=== PATIENT | female | born 1960 | race Caucasian/White ===

== ENCOUNTER 2020-09-12 08:39 | Emergency (ER) | payer BC, SELFPAY ==
[2020-09-12] VITALS (7 sets, daily range): BP systolic 104–139; BP diastolic 72–83; PULSE 53–92; RESP 18–20; TEMP 36.4–37.1; O2SAT 92–99; BMI 24.5
--- NOTE | 2020-09-12 08:45 | ECG_ITS ---
[facility] Test Date: 2020-09-12 Pat Name: Charito Villagomez Department: Room: Gender: Female Pediatric Urologist: : 1960 Requested By: Mc Sinha Order Number: [id number] Mckenzie MD: Karen Carreno M.D. Measurements Intervals [place] Rate: 60 P: 53 MN: 166 QRS: 12 QRSD: 80 T: 54 QT: 433 QTc: 434 Interpretive Statements SINUS RHYTHM LOW QRS VOLTAGE IN PRECORDIAL LEADS [QRS DEFLECTION < 1.0 mV IN CHEST LEADS] Compared to ECG 12/17/2014 01:21:19 Sinus tachycardia no longer present Electronically Signed On 09-12-2020 19:14:21 MICA BUILDER by Karen Carreno M.D. [id number] f
--- NOTE | 2020-09-12 09:17 | W.ED.CHESTPA ---
HPI - Chest Pain General: Chief Complaint: Chest Pain Stated Complaint: CHEST PAIN Time Seen by Provider: 09/12/20 08:45 History of Present Illness: HPI narrative: 59 yo female with chest/epigastric pain. Pt reports she has these episodes 2-4 times per month that usually resolve spontaneously. Pain began while pt was at rest in bed, resolved w IV pain meds she did have an episode of diaphoresis with this but no radiation of pain into the neck back or arms. She states she often can get these episodes to go away when she lies on her stomach. She has no known history of coronary artery disease she is not recently had any productive cough or fever. MD complaint: chest pain Onset (ago): hour(s) Timing of current episode: episodic Prior episodes: Yes Onset: during rest Pain location: substernal and epigastric Pain radiation: none Severity: moderate Quality: tightness and heaviness Relieving factors: other (Lying on his stomach) Exacerbating factors: nothing Associated symptoms: Reports abdominal pain and diaphoresis; Deny dyspnea, fever(s), leg edema, nausea, palpitations, sense of impending doom, syncope or vomiting Treatment prior to arrival: other (IV pain meds) Review of Systems Const: Reports: diaphoresis; Denies: fever(s) ENMT: Denies: throat pain, ear or mastoid pain, nasal discharge or nasal congestion Card: Denies: palpitations or syncope Resp: Denies: dyspnea GI: Reports: abdominal pain; Denies: nausea or vomiting : Denies: flank pain, difficulty voiding, dysuria, urinary frequency or urinary urgency Skin/Breast: Denies: rash or pruritus PFSH ED PFSH: Medical History (Updated 09/12/20 @ 13:56 by Mc Gutiérrez DO) Depression Endometriosis Hypothyroidism Surgical History (Updated 09/12/20 @ 10:11 by Mc Gutiérrez DO) H/O tubal ligation History of endometrial ablation Hx of appendectomy Social History (Updated 09/12/20 @ 10:11 by Mc Gutiérrez DO) Smoking and tobacco status: current some day smoker Alcohol intake: current Physical Exam Const: COMMON NORMALS: no acute distress GENERAL APPEARANCE: cooperative and comfortable ORIENTATION/CONSCIOUSNESS: Yes awake, Yes oriented to person, Yes oriented to place and Yes oriented to time HENMT: COMMON NORMALS: normocephalic, atraumatic and hearing grossly normal bilaterally HEAD & SCALP: normocephalic and atraumatic Neck/C-Spine: COMMON NORMALS: no JVD Resp: COMMON NORMALS: normal respiratory effort, No retractions, No use of accessory muscles and clear to auscultation bilaterally AUSCULTATION: clear to auscultation bilaterally Cardio: COMMON NORMALS: no JVD, regular rate, regular rhythm and No murmurs present (Cardio) RATE: regular rate RHYTHM: regular rhythm GI: COMMON NORMALS: Soft to palpation and No hepatosplenomegaly present AUSCULTATION: Yes normoactive bowel sounds PALPATION: Yes Soft to palpation, No Tenderness to palpation present (GI), No Guarding due to palpation present (GI) and Yes No hepatosplenomegaly present Extremity: COMMON NORMALS: normal to inspection, capillary refill normal, no clubbing, cyanosis or edema, no calf tenderness and no pedal edema Neuro: SENSORIUM/ORIENTATION: Yes oriented to person, Yes oriented to place and Yes oriented to time Skin: COMMON NORMALS: no rashes or lesions noted GENERAL SKIN EXAM: no rashes or lesions noted Course Vital Signs: Vital signs: Vital Signs Temperature 97.6 F 09/12/20 14:15 Pulse Rate 67 09/12/20 14:15 Respiratory Rate 18 09/12/20 14:15 Blood Pressure 116/78 09/12/20 14:15 Pulse Oximetry 92 09/12/20 14:15 MDM - Chest Pain MDM Narrative: Medical decision making narrative: Troponin negative x2 pain is resolved at this point. We are going to discharge her home however take enteric-coated aspirin daily also started on omeprazole set up for an outpatient stress test. Any worsening or change symptoms return to the emergency room. Lab Data: Labs: Lab Results 09/12/20 09/12/20 09/12/20 Range/Units 09:00 09:00 09:00 WBC 7.8 (4.0-10.0) 10^3/ uL RBC 5.07 (4.1-5.3) 10^6/u L Hgb 15.0 (11.5-15.3) g/dL Hct 45.6 (37.0-47.0) % MCV 89.9 (81-99) fL MCH 29.6 (28.0-34.0) pg MCHC 32.9 (30.0-36.0) g/dL RDW 14.1 (12.1-15.1) % Plt Count 284 (130-400) 10^3/c mm MPV 12.3 H (7.4-10.4) fL Neut % (Auto) 74.1 % Lymph % (Auto) 16.5 % Emery % (Auto) 5.2 % Eos % (Auto) 3.2 % Baso % (Auto) 0.6 % Neut # (Auto) 5.79 (1.8-7.7) 10^3/u L Lymph # (Auto) 1.3 (0.8-4.8) 10^3/u L Emery # (Auto) 0.4 (0.2-0.9) 10^3/u L Eos # (Auto) 0.3 (0.0-0.8) 10^3/u L Baso # (Auto) 0.1 (0.0-0.1) 10^3/u L Nucleated RBC % (a uto) 0 % Nucleated RBCs # 0.0 /100WBC Sodium 140 (136-145) mmol/L Potassium 4.1 (3.5-5.1) mmol/L Chloride 106 (98-107) mmol/L Carbon Dioxide 24 (22-29) mmol/L Anion Gap 14.1 (5-19) BUN 11 (6-20) mg/dL Creatinine 0.5 (0.5-0.9) mg/dL GFR Calculation 126.7 (90-130) mL/min Glucose 158 H (65-115) mg/dL Calculated Osmolal ity 293 (285-295) mOsm/k g Calcium 9.1 (8.5-10.5) mg/dL Total Bilirubin 0.4 (0.15-1.2) mg/dL AST 35 H (0-32) U/L ALT 22 (0-33) U/L Alkaline Phosphata se 81 (35-105) IU/L Troponin T Baselin e 6 (0-10) ng/L Troponin T 120 [place] (0-10) ng/L Delta Troponin T (0-10) ABS# Total Protein 6.7 (6.6-8.7) g/dL Albumin 4.0 (3.5-5.2) g/dL Globulin 2.7 (1.3-4.6) g/dL 09/12/20 Range/Units 12:24 WBC (4.0-10.0) 10^3/ uL RBC (4.1-5.3) 10^6/u L Hgb (11.5-15.3) g/dL Hct (37.0-47.0) % MCV (81-99) fL MCH (28.0-34.0) pg MCHC (30.0-36.0) g/dL RDW (12.1-15.1) % Plt Count (130-400) 10^3/c mm MPV (7.4-10.4) fL Neut % (Auto) % Lymph % (Auto) % Emery % (Auto) % Eos % (Auto) % Baso % (Auto) % Neut # (Auto) (1.8-7.7) 10^3/u L Lymph # (Auto) (0.8-4.8) 10^3/u L Emery # (Auto) (0.2-0.9) 10^3/u L Eos # (Auto) (0.0-0.8) 10^3/u L Baso # (Auto) (0.0-0.1) 10^3/u L Nucleated RBC % (a uto) % Nucleated RBCs # /100WBC Sodium (136-145) mmol/L Potassium (3.5-5.1) mmol/L Chloride (98-107) mmol/L Carbon Dioxide (22-29) mmol/L Anion Gap (5-19) BUN (6-20) mg/dL Creatinine (0.5-0.9) mg/dL GFR Calculation (90-130) mL/min Glucose (65-115) mg/dL Calculated Osmolal ity (285-295) mOsm/k g Calcium (8.5-10.5) mg/dL Total Bilirubin (0.15-1.2) mg/dL AST (0-32) U/L ALT (0-33) U/L Alkaline Phosphata se (35-105) IU/L Troponin T Baselin e (0-10) ng/L Troponin T 120 [place] 6.00 (0-10) ng/L Delta Troponin T 0 (0-10) ABS# Total Protein (6.6-8.7) g/dL Albumin (3.5-5.2) g/dL Globulin (1.3-4.6) g/dL Discharge Plan Discharge Clinical Impression: Atypical chest pain Condition: Stable Prescriptions: New aspirin 81 mg tablet,delayed release (DR/EC) 81 mg PO DAILY Qty: 30 RF: 0 omeprazole 20 mg capsule,delayed release(DR/EC) 20 mg PO DAILY Qty: 30 RF: 1 No Action levothyroxine 88 mcg tablet 88 mcg PO DAILY@10 RF: 0 duloxetine 60 mg capsule,delayed release(DR/EC) 60 mg PO DAILY@10 RF: 0 Probiotic 3 billion cell Capsule 3,000 mmu cells PO DAILY@10 RF: 0 Discharge Orders: Discharge ED (Routine); Ordered 09/12/20 Ordered By: Mc Gutiérrez Referrals: Olivia Mark DO [Family Provider] - Activity Restrictions/Additional Instructions: Case management will call to arrange for outpatient stress test Coding Level of Care Code ED Slip Dumper for Chg Fwd Exam Comprehensive
[2020-09-12] MEDS: morphine 4 mg/mL SDV 1 mL 2 MG IVP (09:54)
[2020-09-12 10:02] LABS: Troponin(5th) Baseline 6 ng/L (0-10)
--- NOTE | 2020-09-12 10:28 | XR_ITS ---
WS: [id number] Portable AP upright chest, 09/12/2020 Clinical Data: dyspnea/cough Comparison: PA chest, 12/17/2014. Findings: No nodules, masses or effusions are seen. The heart is normal. The pulmonary vascularity is not increased. No pneumonia or pneumothorax is seen. The aortic arch and descending aorta show tortu osity XR/XR chest 1V portable [id number] Impression: Atherosclerosis.
--- NOTE | 2020-09-12 10:45 | ECG_ITS ---
[facility] Test Date: 2020-09-12 Pat Name: Charito Villagomez Department: Room: Gender: Female Teacher Physically Impaired: : 1960 Requested By: Mc Sinha Order Number: [id number] Mckenzie MD: Karen Carreno M.D. Measurements Intervals [place] Rate: 58 P: 27 [place]: 164 QRS: 34 QRSD: 80 T: 56 QT: 431 QTc: 426 Interpretive Statements SINUS BRADYCARDIA LOW QRS VOLTAGE IN PRECORDIAL LEADS [QRS DEFLECTION < 1.0 mV IN CHEST LEADS] Compared to ECG 09/12/2020 08:51:37 Sinus rhythm no longer present Electronically Signed On 09-12-2020 19:20:47 CANDY STARCH MOLD PRINTER by Karen Carreno M.D. [id number]
[2020-09-12 11:03] LABS: Alanine Aminotransferase 22 U/L (0-33); Alkaline Phosphatase 81 IU/L (35-105); Anion Gap 14.1 (5-19); Aspartate Amino Transferase 35 U/L (0-32); Blood Urea Nitrogen 11 mg/dL (6-20); Calcium 9.1 mg/dL (8.5-10.5); Carbon Dioxide 24 mmol/L (22-29); Chloride 106 mmol/L (98-107); Globulin 2.7 g/dL (1.3-4.6); Glomerular Filtration Rate 126.7 mL/min (90-130); Glucose 158 mg/dL (65-115); Osmolality Calculated 293 mOsm/kg (285-295); Potassium 4.1 mmol/L (3.5-5.1); Sodium 140 mmol/L (136-145); Total Bilirubin 0.4 mg/dL (0.15-1.2); Total Protein 6.7 g/dL (6.6-8.7)
[2020-09-12 11:13] LABS: Basophils # 0.1 10^3/uL (0.0-0.1); Basophils % 0.6 %; Eosinophils # 0.3 10^3/uL (0.0-0.8); Eosinophils % 3.2 %; Hematocrit 45.6 % (37.0-47.0); Lymphocytes # 1.3 10^3/uL (0.8-4.8); Lymphocytes % 16.5 %; Mean Corpuscular HGB Conc 32.9 g/dL (30.0-36.0); Mean Corpuscular Hemoglobin 29.6 pg (28.0-34.0); Mean Corpuscular Volume 89.9 fL (81-99); Mean Platelet Volume 12.3 fL (7.4-10.4); Monocytes # 0.4 10^3/uL (0.2-0.9); Monocytes % 5.2 %; Neutrophils # 5.79 10^3/uL (1.8-7.7); Neutrophils % 74.1 %; Nucleated Red Blood Cells % 0 %; Platelet Count 284 10^3/cmm (130-400); Red Blood Count 5.07 10^6/uL (4.1-5.3); Red Cell Distribution Width 14.1 % (12.1-15.1); White Blood Count 7.8 10^3/uL (4.0-10.0)
--- NOTE | 2020-09-12 12:50 | CT_ITS ---
WS: [id number] CTA OF THE CHEST WITH PULMONARY EMBOLISM PROTOCOL TECHNIQUE: High-resolution contrast enhanced CTA of the chest with coronal and sagittal reformatted i mages with pulmonary embolism protocol. MIP images are also reviewed. CLINICAL INFORMATION: chest pain COMPARISON: None. DLP: 482.[address] scans at [facility] use at least one of these dose optimization techniques: automat ed exposure control; mA and/or kV adjustment per patient size (includes targeted exams where dose is matched to clinical indication); or iterative reconstruction. FINDINGS: Proximal main pulmonary arteries are normal. Normal segmental and subsegmental pulmonary arteries. No evidence Mild chronic emphysematous changes. Subsegmental atelectasis in the lung bases. Clustered nodular [place] in the right upper lobe measuring up to 7 mm. Subsegmental atelectasis in the lung bases. Nonc alcified nodule right lower lobe measuring 5 mm. Additional subpleural nodule right lower lobe measur ing 6 mm. No mediastinal or hilar lymphadenopathy. No axillary lymphadenopathy. Adrenal glands are normal. Small esophageal hiatal hernia. CT/CT angio chest PE protcl [id number] IMPRESSION: 1. No evidence of pulmonary embolus. 2. Mild chronic emphysematous changes. No acute pulmonary infiltrates. Subsegm ental atelectasis in the lung bases. 3. Cluster of 3-4 noncalcified nodules in the right upper lobe measuring up to 7 mm. Additional noncalcified nodules in the right lower lobe measuring 5 to 6 mm. Recommend 3 month follow-up. 4. No mediastinal or hilar lymphadenopathy. Notified Mc Gutiérrez DO at 09/12/2020 1:29 PM.
[2020-09-12] MEDS: iohexol 350 mg/mL 100 mL Btl IV (13:02)
[2020-09-12 13:04] LABS: Troponin 5 2HR Delta 0 ABS# (0-10)
[2020-09-12] MEDS: lidocaine 2% viscous 15 ML, aluminum-mag hydrox-simethicon 30 ML, sucralfate oral liq 1 GM PO (14:10)
== END 2020-09-12 14:17 ==
PROVIDERS: Emergency Provider Family Medicine; Family Provider Family Medicine
DX: R07.89 Other chest pain (principal); F17.210 Nicotine dependence, cigarettes, uncomplicated
CPT/HCPCS: 12345; 71045; 71275; 80053; 84484; 85025; 93005; 96374; 96375; 99283; J2270; Q9967

== ENCOUNTER 2020-10-06 09:05 | Outpatient (CLI) | payer BC, SELFPAY ==
--- NOTE | 2020-10-06 09:20 | US_ITS ---
WS: [id number] ULTRASOUND ABDOMEN CLINICAL INFORMATION: ABDOMINAL BLOATING/RUQ ABDOMINAL PAIN COMPARISON: None. FINDINGS: Liver Size: Normal. Craniocaudal length: 12.5 cm. Echogenicity: Normal. Surface nodularity: None. Mass (size and location): None. Bile ducts Intrahepatic ducts: Normal. Common bile duct diameter: 0.5 cm. Gallbladder Cholelithiasis Gallstones: Present Gallbladder sludge: None. Gallbladder wall thickening: None. Pericholecystic fluid: None. Sonographic Lorenzo sign: Absent. Pancreas Normal as visualized. Spleen Splenomegaly: None. Craniocaudal length: 7.8 cm. Right kidney: Normal. Hydronephrosis: None. Size: 9.9 cm x 4.9 cm x 5.0 cm Left kidney: Normal. Hydronephrosis: None. Size: 10.0 cm x 5.0 cm x 5.1 cm. Abdominal aorta and IVC Visualized portions are normal. Ascites: None. US/US abdomen complete* [id number] IMPRESSION: 1. Normal liver. 2. Cholelithiasis. No gallbladder wall thickening. Normal common bile duct. 3. No hydronephrosis in either kidney.
== END 2020-10-06 09:06 | disposition home or self-care (01) ==
LOC: US 09:08
PROVIDERS: PCP Family Medicine; Visit Provider Registered Nurse
DX: R10.11 Right upper quadrant pain (principal); R14.0 Abdominal distension (gaseous); K80.20 Calculus of gallbladder without cholecystitis without obstruction
CPT/HCPCS: 76700

== ENCOUNTER → 2020-11-14 12:04 | Outpatient (BNVA) | payer BC, SELFPAY | PROVIDERS: PCP Family Medicine; Visit Provider Surgery | DX: Z20.822 Contact with and (suspected) exposure to COVID-19 (principal) | CPT/HCPCS: 87635 ==

== ENCOUNTER 2020-11-20 07:00 | Day surgery (SDC) | payer OTHER, SELFPAY ==
[2020-11-19 12:59] VITALS: BMI 24.5
[2020-11-19 13:18] VITALS: BMI 24.5
[2020-11-20] VITALS (11 sets, daily range): BP systolic 117–157; BP diastolic 81–102; PULSE 59–70; RESP 12–22; TEMP 36.3–36.8; O2SAT 90–99
[2020-11-20] MEDS: sodium chloride 0.9% 1,000 ML 30 ML IV (07:35)
--- NOTE | 2020-11-20 07:46 | W.PM.OPSUD ---
Surgery/Procedure H&P Update DATE OF PROCEDURE: November 20, 2020 DATE H&P PERFORMED: 10/28/20 H&P UPDATE INFORMATION: No changes to prior documentation PLANNED PROCEDURE: Operation Date: 11/20/20 08:45 Proposed Procedures p Laparoscopic Cholecystectomy 40121 K80.10(Not Applicable) - Harvey Alston MD
[2020-11-20 08:36] LABS: Alanine Aminotransferase 13 U/L (0-33); Albumin Level 4.3 g/dL (3.5-5.2); Alkaline Phosphatase 161 IU/L (35-105); Globulin 3.3 g/dL (1.3-4.6); Total Bilirubin 0.3 mg/dL (0.15-1.2); Total Protein 7.6 g/dL (6.6-8.7)
--- NOTE | 2020-11-20 08:36 | ANES.PREANE2 ---
Pre-Anesthetic Assessment Pre-Anesthetic Assessment: Height/Weight: Height 1.55 m Weight 58.967 kg Temp Pulse Resp BP Pulse Ox 97.3 F L 67 18 117/82 96 11/20/20 07:24 11/20/20 07:24 11/20/20 07:24 11/20/20 07:24 11/20/20 07:24 Proposed Procedure: Operation Date: 11/20/20 08:45 Proposed Procedures p Laparoscopic Cholecystectomy 60952 K80.10(Not Applicable) - Harvey Alston MD Was Beta Chloe taken within 24 hours: N/A Last intake: Intake Last Liquid Date 11/19/20 Last Liquid Time 22:00 Last Solid Date 11/19/20 Last Solid Time 17:30 Social: Social History: Tobacco and No alcohol Exam: Pre-Anes Outpt Exam: alert, oriented x 3 and regular rate & rhythm Additional Exam Findings (including area of procedure): rhonchi Airway: Submandibular: WNL Cervical ROM: WNL MP: 2 Dentition: Full Pulmonary: Pulmonary: COPD GI: GI: GERD Metabolic: Metabolic: Thyroid Anesthetic Plan: ASA status: 3 Anesthesia: General Risk of > 500 ml blood loss (7ml/kg in children): No Meds/Allergies Current Medications: Current Medications Generic Name Dose Route Start Last Admin Trade Name Freq PRN Reason Stop Dose Admin Sodium Chloride 1,000 mls @ 30 ml s/hr 11/20/20 07:15 11/20/20 07:35 Sodium Chloride 0.9% IV 11/21/20 07:14 30 mls/hr .Q24H MICHELE Administration PFSH Anesthesia PFSH: Medical History (Updated 09/20/20 @ 00:00 by ) Depression Endometriosis Hypothyroidism Surgical History (Updated 09/12/20 @ 10:11 by Mc Gutiérrez DO) H/O tubal ligation History of endometrial ablation Hx of appendectomy Social History (Updated 09/12/20 @ 10:11 by Mc Gutiérrez DO) Smoking and tobacco status: current some day smoker Alcohol intake: current Data Anesthesia Cardiac Studies: No Data to Display
[2020-11-20 08:42] LABS: Aspartate Amino Transferase 18 U/L (0-32)
--- NOTE | 2020-11-20 09:44 | P.OP_ITS ---
Operative Report Date of procedure: November 20, 2020 Pre-op Diagnosis: Symptomatic cholelithiasis. Post-op diagnosis: same Procedure Done: Laparoscopic cholecystectomy. Specimens removed/disposition: Gallbladder. Surgeon: Harvey Alston Anesthesia: General Estimated blood loss (mL): 10 Complications: None. Condition: stable Disposition: PACU Procedure: The patient was brought to the Operating Room and was placed in a supine position on the Operating Room table. General endotracheal anesthesia was induced. The abdomen was prepped and draped in a sterile fashion. A small vertical incision was carried out in the inferior aspect of the umbilicus. Blunt dissection was carried out down to the fascia, which was grasped with a Aftab clamp. A stay suture of 0 Vicryl was placed on either side of the midline and the midline fascia was incised. The underlying peritoneum was opened bluntly and the Bud port was placed directly into the peritoneal cavity and was held in place with the inflatable balloon. The peritoneal cavity was insufflated with carbon dioxide. The laparoscope was used to inspect the abdominal cavity. The patient had some light adhesions to the lateral sidewall in the right mid abdomen, presumably from her previous appendectomy. No other gross abnormalities were initially noted other than the fact that the gallbladder appeared to be somewhat d istended. A 5 millimeter port was placed in the epigastrium under direct vision. Two 5-millimeter ports were placed on the right side of the abdomen under direct vision. The gallbladder was palpated with a grasper and actually is found to be quite distended. For that reason approximately 50 mL of clear fluid were suctioned out of the gallbladder using a laparoscopic needle to partially decompress it. The gallbladder was then grasped and was elevated. The patient had some adhesions along the fundus of the gallbladder down to and involving the infundibulum. The duodenum was somewhat stuck to the fundus near the infundibulum and was carefully taken off using blunt dissection with a minimum of cautery to maintain hemostasis. Blunt dissection and hydrodissection were carried out in the infundibular region of the gallbladder and the cystic duct and cystic artery were identified. The cystic duct appeared to be somewhat sizable. All of the patient's liver function studies preoperatively were normal with the exception of a mildly elevated alkaline phosphatase. The gallbladder was partially removed from the liver bed using cautery and the spatula to confirm the anatomy before the structures were clipped and divided. The gallbladder was palpated with a grasper from the common bile duct side up towards the lumen to pushing the stone into the gallbladder lumen prior to clipping and division. The gallbladder was then removed from the liver bed using cautery and the spatula. After the gallbladder had been removed from the liver bed, the laparoscope was moved to the epigastric port and the gallbladder was removed from the peritoneal cavity through the umbilical port site after being placed in a laparoscopic bag. The stay sutures of Vicryl were tied to each other at the umbilicus, closing the defect so that it was airtight. The perihepatic spaces were irrigated with saline and the liver bed was reinspected. No ongoing problems were seen. The remaining ports were removed from the abdominal wall and the pneumoperitoneum was evacuated. All skin incisions were closed using inverted interrupted sutures of 4-0 Vicryl. Benzoin and Steri-Strips were placed over the incisions and Band-Aids followed. The patient was taken to the Recovery Area in stable condition postoperatively.
[2020-11-20] MEDS: ipratropium 0.5 mg/2.5 mL Neb INHALATION (10:03)
--- NOTE | 2020-11-20 12:05 | ANE.PACU2 ---
Inpatient post-anesthesia follow up: Airway intact: Yes Vital signs: Temperature 98.3 F Pulse Rate 60 Respiratory Rate 18 Blood Pressure 157/95 Pulse Oximetry 97 Oxygen Delivery Me thod Room Air Oxygen Flow Rate 2 Fraction of Inspir ed Oxygen Hydration adequate: Yes Nausea and vomiting: No Pain level: 2 Mental status: Baseline
== END 2020-11-20 11:45 | disposition home or self-care (01) ==
PROVIDERS: PCP Family Medicine; Visit Provider Surgery
PROC: 0FT44ZZ Resection of Gallbladder, Percutaneous Endoscopic Approach (ICD-10-PCS; CPT 47562; principal; 2020-11-20 08:45)
DX: K80.10 Calculus of gallbladder with chronic cholecystitis without obstruction (principal); J44.9 Chronic obstructive pulmonary disease, unspecified; E03.9 Hypothyroidism, unspecified; F17.210 Nicotine dependence, cigarettes, uncomplicated
CPT/HCPCS: 47562; 12345; 80076; 88304; 96365; J0690; J3010; J3490; J7030; J7611; J7644

== ENCOUNTER 2022-02-16 12:06 | Emergency (ER) | payer OTHER, SELFPAY ==
[2022-02-16 12:25] VITALS: BP 125/85; PULSE 69; RESP 15; TEMP 36; O2SAT 97
--- NOTE | 2022-02-16 12:47 | ED_ITS ---
HPI - Abdominal Pain General: Chief Complaint: Abdominal Pain Stated Complaint: n/v Time Seen by Provider: 02/16/22 12:42 History of Present Illness: 61-year-old female in with upper abdominal pain for the past 45 to 60 minutes. Patient reports that her stomach felt a little queasy early this morning but really she was doing okay they went out did some shopping and then she began to have some concerns of worsening abdominal pain and had some nausea vomiting and diarrhea. She does not believe she is run any fever. She has had symptoms like this previously she says that it reminds her of when she had her gallbladder attacks. The patient has had a interval cholecystectomy. The patient denies any blood in the stools or vomitus. She has not been drinking she never had a history of pancreatitis. She does feel like she has had history of ulcer or gastritis previously but is unsure exactly. The patient denies any fever. She just says that overall she just generally does not feel well. The patient has not started on any new or different medications nor she traveled out of the area recently. No other symptoms reported. [facility] ED PFSH: Medical History Depression Endometriosis Hypothyroidism Surgical History H/O tubal ligation History of endometrial ablation Hx of appendectomy Social History Smoking and tobacco status: current some day smoker Alcohol intake: current Physical Exam Const: COMMON NORMALS: no acute distress, patient oriented x3, healthy appearing and alert HENMT: COMMON NORMALS: normocephalic HEAD & SCALP: normocephalic Eye: COMMON NORMALS: Equal, round and reactive pupils present, EOMs intact bilaterally and conjunctivae normal CONJUNCTIVA: Yes conjunctivae normal PUPIL: Yes Equal, round and reactive pupils present Neck/C-Spine: COMMON NORMALS: full ROM, no lymphadenopathy and no meningeal signs Chest: COMMONS NORMALS: normal inspection of the chest and normal palpation of entire chest wall Resp: COMMON NORMALS: normal respiratory effort and clear to auscultation bilaterally AUSCULTATION: clear to auscultation bilaterally GI: COMMON NORMALS: Normal to inspection, nondistended, normoactive bowel sounds present, Soft to palpation and non-tender PALPATION: Yes Soft to palpation : COMMON NORMALS: Yes no CVA tenderness BLADDER/KIDNEY EXAM: Yes no CVA tenderness Back/Pelvis: COMMON NORMALS: no CVA tenderness Extremity: COMMON NORMALS: normal to inspection, full ROM and capillary refill normal Neuro: COMMON NORMALS: patient oriented x3 SENSORIUM/ORIENTATION: Yes alert MENINGEAL SIGNS: Yes no meningeal signs Skin: COMMON NORMALS: no rashes or lesions noted, no wounds and turgor normal GENERAL SKIN EXAM: no rashes or lesions noted and turgor normal Course Vital Signs: Vital signs: Vital Signs Temperature 96.8 F L 02/16/22 12:25 Pulse Rate 61 02/16/22 13:44 Respiratory Rate 15 02/16/22 12:25 Blood Pressure 159/82 02/16/22 13:44 Pulse Oximetry 97 02/16/22 13:44 MDM - Abdominal Pain Medical Decision Making 61-year-old female in with concerns of nausea vomiting and loose stools of rather acute onset. She is presenting very early I suspect that this is likely a viral syndrome there is another close contact that had some similar symptoms including some diarrhea. The patient does not look particularly ill her vital signs are reasonable she is not febrile. I will give her some IV fluids, antiemetics if she can handle a GI cocktail we may try that as well. We will check some routine labs and then based on objective findings and reexamination will determine a disposition. Patient felt significantly better after intervention in the emergency department her labs were not particularly disordered or diagnostic. She had mildly elevated lipase not meeting criteria for pancreatitis. She did not have any ongoing active vomiting in the emergency department her vital signs remained stable. I think the patient is unlikely to have a serious intra-abdominal process I think observational treatment and symptomatic care is reasonable. Lab Data : 02/16/22 13:12 02/16/22 13:12 Labs/Radiology: Laboratory Results WBC 13.5 10^3/uL (4.0-10.0) H 02/16/22 13:12 RBC 5.56 10^6/uL (4.1-5.3) H 02/16/22 13:12 Hgb 16.8 g/dL (11.5-15.3) H 02/16/22 13:12 Hct 49.3 % (37.0-47.0) H 02/16/22 13:12 MCV 88.7 fl (81-99) 02/16/22 13:12 MCH 30.2 pg (28.0-34.0) 02/16/22 13:12 MCHC 34.1 g/dL (30.0-36.0) 02/16/22 13:12 RDW 13.9 % (12.1-15.1) 02/16/22 13:12 Plt Count 293 10^3/cmm (130-400) 02/16/22 13:12 MPV 11.6 fL (7.4-10.4) H 02/16/22 13:12 Neut % (Auto) 87.5 % 02/16/22 13:12 Lymph % (Auto) 7.1 % 02/16/22 13:12 Archer % (Auto) 4.1 % 02/16/22 13:12 Eos % (Auto) 0.7 % 02/16/22 13:12 Baso % (Auto) 0.3 % 02/16/22 13:12 Neut # (Auto) 11.82 10^3/uL (1.8-7.7) H 02/16/22 13:12 Lymph # (Auto) 1.0 10^3/uL (0.8-4.8) 02/16/22 13:12 Archer # (Auto) 0.6 10^3/uL (0.2-0.9) 02/16/22 13:12 Eos # (Auto) 0.1 10^3/uL (0.0-0.8) 02/16/22 13:12 Baso # (Auto) 0.0 10^3/uL (0.0-0.1) 02/16/22 13:12 Nucleated RBC % (auto) 0 % 02/16/22 13:12 Nucleated RBCs # 0.0 /100WBC 02/16/22 13:12 Sodium 136 mmol/L (136-145) 02/16/22 13:12 Potassium 3.5 mmol/L (3.5-5.1) 02/16/22 13:12 Chloride 99 mmol/L (98-107) 02/16/22 13:12 Carbon Dioxide 22 mmol/L (22-29) 02/16/22 13:12 Anion Gap 18.5 (5-19) 02/16/22 13:12 BUN 12 mg/dL (8-23) 02/16/22 13:12 Creatinine 0.6 mg/dL (0.5-0.9) 02/16/22 13:12 GFR Calculation 102.0 mL/min (90-130) 02/16/22 13:12 Glucose 105 mg/dL (65-115) 02/16/22 13:12 Calculated Osmolality 282 mOsm/kg (285-295) L 02/16/22 13:12 Calcium 10.1 mg/dL (8.5-10.5) 02/16/22 13:12 Total Bilirubin 0.4 mg/dL (0.15-1.2) 02/16/22 13:12 AST 18 U/L (0-32) 02/16/22 13:12 ALT 9 U/L (0-33) 02/16/22 13:12 Alkaline Phosphatase 99 IU/L (35-105) 02/16/22 13:12 Total Protein 9.2 g/dL (6.6-8.7) H 02/16/22 13:12 Albumin 5.0 g/dL (3.5-5.2) 02/16/22 13:12 Globulin 4.2 g/dL (1.3-4.6) 02/16/22 13:12 Lipase 64 U/L (13-60) H 02/16/22 13:12 Discharge Plan Discharge Patient Disposition: Home Clinical Impression: Nausea vomiting and diarrhea Condition: Stable Prescriptions: No Action levothyroxine 88 mcg tablet 88 mcg PO DAILY@10 0RF duloxetine 60 mg capsule,delayed release(DR/EC) 60 mg PO DAILY@10 0RF aspirin 81 mg tablet,delayed release (DR/EC) 81 mg PO DAILY Qty: 30 0RF omeprazole 20 mg capsule,delayed release(DR/EC) 20 mg PO DAILY Qty: 30 1RF hydromorphone 4 mg tablet 4 mg PO Q6H PRN (Reason: pain) Qty: 20 0RF Discharge Orders: Discharge ED (Routine); Ordered 02/16/22 Ordered By: Akash Humphrey Referrals: Olivia Mark DO [Primary Care Provider] - Discharge Diet: Full LIquid Discharge Activity: Resume usual activity Patient Instructions: Opioid Safety Coding Level of Care Code ED 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
--- NOTE | 2022-02-16 12:55 | ECG_ITS ---
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 Measurements Intervals [place] Rate: 66 P: 70 [place]: 180 QRS: -4 QRSD: 77 T: 46 QT: 416 QTc: 436 Interpretive Statements SINUS RHYTHM POSSIBLE LEFT ATRIAL ENLARGEMENT [-0.1mV P-WAVE IN V1/V2] LOW QRS VOLTAGE IN PRECORDIAL LEADS [QRS DEFLECTION < 1.0 mV IN CHEST LEADS] POSSIBLE RIGHT VENTRICULAR CONDUCTION DELAY [RSR (QR) IN V1/V2] Compared to ECG 09/12/2020 11:26:43 Sinus bradycardia no longer present Electronically Signed On 02-16-2022 17:24:45 CDT by Franklin Perry M.D. [id number]
[2022-02-16 13:22] LABS: Basophils % 0.3 %; Eosinophils # 0.1 10^3/uL (0.0-0.8); Eosinophils % 0.7 %; Hematocrit 49.3 % (37.0-47.0); Hemoglobin 16.8 g/dL (11.5-15.3); Lymphocytes % 7.1 %; Mean Corpuscular HGB Conc 34.1 g/dL (30.0-36.0); Mean Corpuscular Hemoglobin 30.2 pg (28.0-34.0); Mean Corpuscular Volume 88.7 fl (81-99); Mean Platelet Volume 11.6 fL (7.4-10.4); Monocytes # 0.6 10^3/uL (0.2-0.9); Monocytes % 4.1 %; Neutrophils # 11.82 10^3/uL (1.8-7.7); Neutrophils % 87.5 %; Nucleated Red Blood Cells % 0 %; Platelet Count 293 10^3/cmm (130-400); Red Blood Count 5.56 10^6/uL (4.1-5.3); Red Cell Distribution Width 13.9 % (12.1-15.1); White Blood Count 13.5 10^3/uL (4.0-10.0)
[2022-02-16] MEDS: ondansetron 2 mg/ML SDV 2 mL 4 MG IVP (13:23)
[2022-02-16] MEDS: sodium chloride 0.9% 1,000 ML 999 ML IV (13:24)
[2022-02-16 13:44] VITALS: BP 159/82; PULSE 61; O2SAT 97
[2022-02-16 13:47] LABS: Alanine Aminotransferase 9 U/L (0-33); Alkaline Phosphatase 99 IU/L (35-105); Anion Gap 18.5 (5-19); Aspartate Amino Transferase 18 U/L (0-32); Blood Urea Nitrogen 12 mg/dL (8-23); Calcium 10.1 mg/dL (8.5-10.5); Carbon Dioxide 22 mmol/L (22-29); Chloride 99 mmol/L (98-107); Globulin 4.2 g/dL (1.3-4.6); Glucose 105 mg/dL (65-115); Lipase 64 U/L (13-60); Osmolality Calculated 282 mOsm/kg (285-295); Potassium 3.5 mmol/L (3.5-5.1); Sodium 136 mmol/L (136-145); Total Bilirubin 0.4 mg/dL (0.15-1.2); Total Protein 9.2 g/dL (6.6-8.7)
--- NOTE | 2022-02-16 14:04 | PC.NURSE ---
Patient vomited while in ER- 3. Can not keep PO meds down
[2022-02-16] MEDS: diphenhydrAMINE 50 mg/mL SDV 1mL IVP (14:57)
[2022-02-16] MEDS: prochlorperazine 10 mg/2 mL Inj IVP (14:57)
[2022-02-16 15:53] VITALS: BP 148/81; PULSE 64; RESP 18; TEMP 36.2; O2SAT 97
== END 2022-02-16 15:57 | disposition home or self-care (01) ==
PROVIDERS: Emergency Provider Family Medicine; PCP Family Medicine
DX: R11.2 Nausea with vomiting, unspecified (principal); R19.7 Diarrhea, unspecified; F17.200 Nicotine dependence, unspecified, uncomplicated; Z79.82 Long term (current) use of aspirin; Z79.891 Long term (current) use of opiate analgesic
CPT/HCPCS: 80053; 83690; 85025; 93005; 96365; 96375; 99284; J0780; J1200; J2405; J7030

== ENCOUNTER 2024-03-14 03:11 | Emergency (ER) | payer MEDICAID, SELFPAY ==
[2024-03-14 03:12] VITALS: BP 135/90; PULSE 79; RESP 16; TEMP 35.8; O2SAT 97; BMI 23.6
--- NOTE | 2024-03-14 03:14 | ECG_ITS ---
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 Measurements Intervals [place] Rate: 71 P: 56 [place]: 182 QRS: -4 QRSD: 70 T: 30 QT: 387 QTc: 423 Interpretive Statements SINUS RHYTHM POSSIBLE LEFT ATRIAL ENLARGEMENT [-0.1mV P-WAVE IN V1/V2] LOW QRS VOLTAGE IN PRECORDIAL LEADS [QRS DEFLECTION < 1.0 mV IN CHEST LEADS] POSSIBLE ANTERIOR MYOCARDIAL INFARCTION , OF INDETERMINATE AGE [30 ms Q WAVE IN V3/V4, OR R < 0.2 mV IN V4] Compared to ECG 02/16/2022 13:38:42 Myocardial infarct finding now present Electronically Signed On 03-14-2024 18:15:39 CDT by Franklin Perry M.D. [id number]
--- NOTE | 2024-03-14 03:15 | CTR_ITS ---
PROCEDURE INFORMATION: Exam: CT Head Without Contrast Exam date and time: 03/14/2024 3:36 AM Age: 63 years old Clinical indication: Dizziness; Additional info: Vertigo TECHNIQUE: Imaging protocol: Computed tomography of the head without contrast. Radiation optimization: All CT scans at this facility use at least one of these dose optimization techniques: automated exposure control; mA and/or kV adjustment per patient size (includes targeted exams where dose is matched to clinical indication); or iterative reconstruction. COMPARISON: No relevant prior studies available. RADIATION DOSE METRICS: Total DLP (mGy-cm): 986 FINDINGS: Brain: Pineal gland calcifications. Cerebral ventricles: Choroid plexus calcifications. Paranasal sinuses: Visualized sinuses are unremarkable. No fluid levels. Mastoid air cells: Visualized mastoid air cells are well aerated. Bones: Unremarkable. No acute fracture. Soft tissues: Unremarkable. CT/CT head wo con* [id number] IMPRESSION: No acute intracranial findings.
--- NOTE | 2024-03-14 03:17 | W.ED.NAVMDI ---
HPI - Nausea/Vomiting/Diarrhea General: Chief complaint: Nausea/Vomiting/Diarrhea Stated complaint: n/v Time Seen by Provider: 03/14/24 03:14 History of Present Illness: 63-year-old female with a history of depression and hypothyroidism who presents to the emergency room with vertigo, nausea and vomiting. She says she was laying on the floor to try to help her back and suddenly started feeling very dizzy she has had some vomiting. Her stomach feels queasy. No abdominal pain. She has vertigo on exam on presentation. She says she has had this before but never this bad. No focal motor deficits. No slurred speech. No altered mental status. No gait abnormalities. Review of Systems Narrative: Constitutional symptoms: Negative except as documented in HPI. Skin symptoms: Negative except as documented in HPI. Eye symptoms: Negative except as documented in HPI. ENMT symptoms: Negative except as documented in HPI. Respiratory symptoms: Negative except as documented in HPI. Cardiovascular symptoms: Negative except as documented in HPI. Gastrointestinal symptoms: Negative except as documented in HPI. Genitourinary symptoms: Negative except as documented in HPI. Musculoskeletal symptoms: Negative except as documented in HPI. Neurologic symptoms: Negative except as documented in HPI. Psychiatric symptoms: Negative except as documented in HPI. Endocrine symptoms: Negative except as documented in HPI. [facility] ED PFSH: Medical History Depression Endometriosis Hypothyroidism Surgical History H/O tubal ligation History of endometrial ablation Hx of appendectomy Social History Smoking and tobacco/nicotine status: current some day tobacco/nicotine user Alcohol intake: current Physical Exam Narrative: EXAM NARRATIVE: General: Alert, no acute distress. Skin: Warm, dry. Head: Normocephalic, atraumatic. Neck: Supple, trachea midline. Eye: Extraocular movements are intact. Ears, nose, mouth and throat: mucosa moist. Cardiovascular: Regular, Normal peripheral perfusion. Respiratory: Lungs are clear to auscultation, respirations are non-labored, breath sounds are equal, Symmetrical chest wall expansion. Gastrointestinal: Soft, Nontender, Non distended, Normal bowel sounds. Musculoskeletal: Normal ROM, no deformity. Neurological: Alert and oriented, No focal neurological deficit observed. Patient has bilateral horizontal nystagmus. Psychiatric: Cooperative, appropriate mood & affect. Course Vital Signs: Vital signs: Vital Signs Temperature 96.5 F L 03/14/24 03:12 Pulse Rate 66 03/14/24 04:00 Respiratory Rate 16 03/14/24 04:00 Blood Pressure 106/73 03/14/24 04:00 Pulse Oximetry 95 03/14/24 04:00 Oxygen Delivery Me thod Room Air 03/14/24 03:12 MDM - Nausea/Vomiting/Diarrhea Medical Decision Making Medical decision making: Differential diagnosis for this patient with vertigo including but not limited to and based on the above HPI, review of systems and physical exam: Will be concern for benign positional vertigo, brainstem or cerebellar strokes, intracranial hemorrhage. Orders placed to evaluate differential diagnosis based on the above differential, HPI and physical exam EKG: Time 3:27 AM rate 71. Normal sinus rhythm, No ST-T changes, no ectopy, normal RI & QRS intervals, This was reviewed and interpreted by myself the ER physician at 3:[address] head: No acute intracranial process. no intracranial hemorrhage, no evidence of infarct. no evidence of acute fracture.This was reviewed and interpreted by myself the ER physician. Lab Review: Laboratory results were reviewed and interpreted by myself the emergency room physician. Lab work is unremarkable. Some mild hypokalemia at 3.2. No anemia. BUN and creatinine are 11 and 0.5 which is normal. I reviewed the patient's medical record. Reexamination: Patient feels much improved. No more nystagmus. Meclizine has helped. No altered mental status. No focal deficits. Assessment and plan: Vertigo ? Patient's symptoms improved with p.o. meclizine - Discharged home - Discussed plan with patient. Answered any questions. - Evaluation and treatment of this problem were appropriate in the emergency setting. Lab Data 03/14/24 03:29 03/14/24 03:[address] 03/14/24 03:15 IMPRESSION: No acute intracranial findings. Laboratory Results WBC 10.71 10^3/uL (3.29-11.43) 03/14/24 03:29 RBC 4.60 10^6/uL (3.85-5.65) 03/14/24 03:29 Hgb 14.30 g/dL (11.27-16.99) 03/14/24 03:29 Hct 42.1 % (36-47) 03/14/24 03: MCV 91.5 fl (85-98) 03/14/24 03: MCH 31.1 pg (27-33) 03/14/24 03: MCHC 34.0 g/dL (30-55) 03/14/24 03: RDW 14.0 % (12.1-15.1) 03/14/24 03: Plt Count 227 10^3/cmm (157-399) 03/14/24 03: MPV 12.1 fL (7.4-10.4) H 03/14/24 03: Neut % (Auto) 73.0 % 03/14/24 03: Lymph % (Auto) 17.8 % 03/14/24 03: Sunflower % (Auto) 6.8 % 03/14/24 03: Eos % (Auto) 1.4 % 03/14/24 03: Baso % (Auto) 0.6 % 03/14/24 03: Neut # (Auto) 7.82 10^3/uL (1.8-7.7) H 03/14/24 03: Lymph # (Auto) 1.9 10^3/uL (0.8-4.8) 03/14/24 03: Sunflower # (Auto) 0.7 10^3/uL (0.2-0.9) 03/14/24 03: Eos # (Auto) 0.2 10^3/uL (0.0-0.8) 03/14/24 03: Baso # (Auto) 0.1 10^3/uL (0.0-0.1) 03/14/24 03: Nucleated RBC % (auto) 0 % 03/14/24 03: Nucleated RBCs # 0.0 /100WBC 03/14/24 03: Sodium 137 mmol/L (136-145) 03/14/24 03: Potassium 3.2 mmol/L (3.5-5.1) L 03/14/24 03: Chloride 102 mmol/L (98-107) 03/14/24 03:29 Carbon Dioxide 23 mmol/L (22-29) 03/14/24 03:29 Anion Gap 15.2 (5-19) 03/14/24 03:29 BUN 11 mg/dL (8-23) 03/14/24 03:29 Creatinine 0.5 mg/dL (0.5-0.9) 03/14/24 03:29 GFR Calculation 125.0 mL/min (90-130) 03/14/24 03:29 Glucose 138 mg/dL (65-115) H 03/14/24 03:29 Calculated Osmolality 286 mOsm/kg (285-295) 03/14/24 03:29 Calcium 8.4 mg/dL (8.5-10.5) L 03/14/24 03:29 Total Bilirubin 0.2 mg/dL (0.15-1.2) 03/14/24 03:29 AST 14 U/L (0-32) 03/14/24 03:29 ALT 8 U/L (0-33) 03/14/24 03:29 Alkaline Phosphatase 83 U/L (35-105) 03/14/24 03:29 Total Protein 7.1 g/dL (6.6-8.7) 03/14/24 03:29 Albumin 3.9 g/dL (3.5-5.2) 03/14/24 03:29 Globulin 3.2 g/dL (1.3-4.6) 03/14/24 03:29 All radiology interpretation(s) finalized by discharge Discharge Plan Discharge Patient Disposition: Home Clinical Impression: Vertigo Condition: Stable Prescriptions: New meclizine 25 mg tablet 25 mg PO QID PRN (Reason: dizziness) Qty: 20 0RF No Action levothyroxine 88 mcg tablet 88 mcg PO DAILY@10 duloxetine 60 mg capsule,delayed release(DR/EC) 60 mg PO DAILY@10 aspirin 81 mg tablet,delayed release (DR/EC) 81 mg PO DAILY Qty: 30 0RF omeprazole 20 mg capsule,delayed release(DR/EC) 20 mg PO DAILY Qty: 30 1RF hydromorphone 4 mg tablet 4 mg PO Q6H PRN (Reason: pain) Qty: 20 0RF Discharge Orders: Discharge ED (Routine); Ordered 03/14/24 Ordered By: Christy Cardenas Referrals: Olivia Mark DO [Primary Care Provider] - 1-3 days Discharge Diet: Usual diet Discharge Activity: Increase activity as tolerated Patient Instructions: Benign Paroxysmal Positional Vertigo (ED) Activity Restrictions/Additional Instructions: Thank you for choosing [facility] for your healthcare needs today. Please realize this is an emergency room and that we are providing you with a medical screening exam and this may not be complete and all inclusive of all the testing and or work up that you may need to determine your ailment or severity of your illness. You have been screened and evaluated and felt safe for discharge. Health conditions do change or evolve sometimes and as such it is important that you follow up with your Primary Doctor to be re checked, 3-5 days is a general good time frame for follow up. You are always welcome to return to the ED for re assessment if your symptoms are worsening or you have new concerns Coding Level of Care Code ED Dust Collector Attendant for Kari Duvall
[2024-03-14] MEDS: meclizine 25 mg tablet 50 MG PO (03:30)
[2024-03-14 03:37] LABS: Basophils # 0.1 10^3/uL (0.0-0.1); Basophils % 0.6 %; Eosinophils # 0.2 10^3/uL (0.0-0.8); Eosinophils % 1.4 %; Hematocrit 42.1 % (36-47); Lymphocytes # 1.9 10^3/uL (0.8-4.8); Lymphocytes % 17.8 %; Mean Corpuscular Hemoglobin 31.1 pg (27-33); Mean Corpuscular Volume 91.5 fl (85-98); Mean Platelet Volume 12.1 fL (7.4-10.4); Monocytes # 0.7 10^3/uL (0.2-0.9); Monocytes % 6.8 %; Neutrophils # 7.82 10^3/uL (1.8-7.7); Nucleated Red Blood Cells % 0 %; Platelet Count 227 10^3/cmm (157-399); White Blood Count 10.71 10^3/uL (3.29-11.43)
[2024-03-14 03:58] LABS: Alanine Aminotransferase 8 U/L (0-33); Albumin Level 3.9 g/dL (3.5-5.2); Alkaline Phosphatase 83 U/L (35-105); Anion Gap 15.2 (5-19); Aspartate Amino Transferase 14 U/L (0-32); Blood Urea Nitrogen 11 mg/dL (8-23); Calcium 8.4 mg/dL (8.5-10.5); Carbon Dioxide 23 mmol/L (22-29); Chloride 102 mmol/L (98-107); Creatinine Clr Calc Pharmacy 94.5873; Globulin 3.2 g/dL (1.3-4.6); Glucose 138 mg/dL (65-115); Osmolality Calculated 286 mOsm/kg (285-295); Potassium 3.2 mmol/L (3.5-5.1); Sodium 137 mmol/L (136-145); Total Bilirubin 0.2 mg/dL (0.15-1.2); Total Protein 7.1 g/dL (6.6-8.7)
[2024-03-14 04:00] VITALS: BP 106/73; PULSE 66; RESP 16; O2SAT 95
[2024-03-14 05:00] VITALS: BP 109/75; PULSE 67; RESP 16; O2SAT 95
== END 2024-03-14 05:15 | disposition home or self-care (01) ==
PROVIDERS: Emergency Provider Emergency Medicine; PCP Family Medicine
DX: R42 Dizziness and giddiness (principal); Z79.82 Long term (current) use of aspirin; Z72.0 Tobacco use
CPT/HCPCS: 70450; 80053; 85025; 93005; 99284; J8597